=== PATIENT | female | born 1950 | race Caucasian/White ===

== ENCOUNTER 2020-10-18 16:40 | Inpatient (IN) | payer MEDICARE ==
[2020-10-18] MEDS ORDERED: Ondansetron PF 4 MG/2 ML Vial ONE (19:09)
[2020-10-18] MEDS ORDERED: Morphine 4 MG/ML VIAL ONE (19:09)
[2020-10-18 19:40] LABS: #Basophils 0.1 thou/uL (0.0-0.2); #Eosinphils 0.1 thou/uL (0.0-0.7); #Lymphocytes 1.5 thou/uL (1.20-3.40); #Monocytes 0.5 thou/uL (0.11-0.59); #Neutrophils 7.4 thou/uL (1.40-6.50); %Basophils 0.7 % (0.0-1.0); %Lymphocytes 15.5 % (21.0-51.0); %Monocytes 5.1 % (0.0-10.0); %Neutrophils 77.7 % (42.0-75.0); Hemoglobin 14.9 g/dL (12.0-16.0); Mean Corpuscular HGB CONC 32.2 g/dL (32.0-36.0); Mean Corpuscular Hemoglobin 32.1 pg (27.0-31.0); Mean Corpuscular Volume 99.6 fL (78.0-98.0); Mean Platelet Volume 9.6 fL (7.4-10.4); Platelet Count 261 thou/uL (130-400); RBC Distribution Width 12.5 % (11.5-14.5); Red Blood Cell (RBC) Count 4.65 mill/uL (4.20-5.40); White Blood Cell (WBC) Count 9.5 thou/uL (4.8-10.8)
[2020-10-18 20:01] LABS: ALT (SGPT) 45 U/L (8-55); AST (SGOT) 33 U/L (5-34); Albumin 3.9 g/dL (3.4-4.8); Alkaline Phosphatase 134 U/L (40-110); Anion Gap 10 mmol/L (10-20); BUN (Urea Nitrogen) 15 mg/dL (9.8-20.1); Bilirubin, Total 0.4 mg/dL (0.2-1.2); Calc. Creatinine Clearance 0 mL/min (70-130); Calcium 9.4 mg/dL (7.8-10.44); Carbon Dioxide 28 mmol/L (23-31); Chloride 105 mmol/L (98-107); Globulin 3.9 g/dL (2.4-3.5); Glucose 145 mg/dL (80-115); Lipase 28 U/L (8-78); Potassium 4.4 mmol/L (3.5-5.1); Protein, Total 7.8 g/dL (5.8-8.1); Sodium 139 mmol/L (136-145)
[2020-10-18] MEDS ORDERED: Dextrose 5% in Water 1,000 ML IV PRN (22:34)
[2020-10-18] MEDS ORDERED: Dextrose 50% Abboject 50 ML SYRINGE SLOW IVP PRN (22:34)
[2020-10-18] MEDS ORDERED: Senokot S 8.6-50 MG TAB PO PRN (22:34)
[2020-10-18] MEDS ORDERED: Ondansetron PF 4 MG/2 ML Vial IVP PRN (22:34)
[2020-10-18] MEDS ORDERED: HumaLOG 300 UNITS/3 ML VIAL SC PRN ×2 (22:34)
[2020-10-19] MEDS: Sodium Chloride 0.9% 1,000 ML IV SCH ×2 (00:26→11:45)
[2020-10-19] MEDS: Morphine 4 MG/ML VIAL SLOW IVP PRN ×2 (00:48→18:55)
[2020-10-19] MEDS ORDERED: Amiodarone 200 MG TAB PO SCH (01:15)
[2020-10-19] MEDS ORDERED: Diazepam 5 MG TAB PO SCH (01:15)
[2020-10-19 02:16] VITALS: BMI 27.7
[2020-10-19 06:16] LABS: #Basophils 0.1 thou/uL (0.0-0.2); #Eosinphils 0.1 thou/uL (0.0-0.7); #Monocytes 0.9 thou/uL (0.11-0.59); #Neutrophils 8.7 thou/uL (1.40-6.50); %Basophils 0.8 % (0.0-1.0); %Eosinophils 0.7 % (0.0-10.0); %Lymphocytes 17.3 % (21.0-51.0); %Monocytes 7.2 % (0.0-10.0); Hemoglobin 13.6 g/dL (12.0-16.0); Mean Corpuscular HGB CONC 33.2 g/dL (32.0-36.0); Mean Corpuscular Hemoglobin 33.3 pg (27.0-31.0); Mean Platelet Volume 9.6 fL (7.4-10.4); Platelet Count 245 thou/uL (130-400); RBC Distribution Width 12.5 % (11.5-14.5); Red Blood Cell (RBC) Count 4.07 mill/uL (4.20-5.40); White Blood Cell (WBC) Count 11.7 thou/uL (4.8-10.8)
[2020-10-19 06:35] LABS: Anion Gap 10 mmol/L (10-20); BUN (Urea Nitrogen) 11 mg/dL (9.8-20.1); Bilirubin, Total 0.6 mg/dL (0.2-1.2); Calc. Creatinine Clearance 109 mL/min (70-130); Calcium 9.2 mg/dL (7.8-10.44); Carbon Dioxide 25 mmol/L (23-31); Chloride 108 mmol/L (98-107); Glucose 90 mg/dL (80-115); Potassium 3.9 mmol/L (3.5-5.1); Sodium 139 mmol/L (136-145)
[2020-10-19 06:36] LABS: ALT (SGPT) 63 U/L (8-55); AST (SGOT) 57 U/L (5-34); Albumin 3.4 g/dL (3.4-4.8); Alkaline Phosphatase 125 U/L (40-110); Globulin 3.4 g/dL (2.4-3.5); Protein, Total 6.8 g/dL (5.8-8.1)
[2020-10-19] MEDS: Diazepam 5 MG TAB PO SCH ×2 (08:36→20:30)
[2020-10-19] MEDS: Lantus 1000 UNITS/10 ML VIAL SC SCH (08:41)
[2020-10-19] MEDS ORDERED: Iopamidol-370 76% 500 ML 1 ML ONE (09:48)
[2020-10-19] MEDS: Amlodipine 5 MG TAB PO SCH (11:39)
[2020-10-19] MEDS: Potassium Chloride 10 MEQ TAB PO SCH (11:40)
[2020-10-19] MEDS: Lidocaine 5% Patch TD SCH (11:40)
[2020-10-19] MEDS: Amiodarone 200 MG TAB PO SCH ×2 (11:40→20:30)
[2020-10-19] MEDS: Ondansetron ODT 4 MG TAB PO PRN (11:45)
[2020-10-19 19:38] LABS: SARS-CoV-2 PCR by NAA Not Detected (NotDetected)
[2020-10-19] MEDS: Melatonin 3 MG TAB PO PRN (20:30)
[2020-10-19] MEDS: Atorvastatin Calcium 40 MG TAB PO SCH (20:30)
[2020-10-19] MEDS: Transdermal Patch Removal TOP SCH (20:36)
[2020-10-20] MEDS: Sodium Chloride 0.9% 1,000 ML IV SCH ×3 (01:47→21:10)
[2020-10-20 05:50] LABS: #Eosinphils 0.1 thou/uL (0.0-0.7); #Lymphocytes 1.3 thou/uL (1.20-3.40); #Monocytes 0.5 thou/uL (0.11-0.59); #Neutrophils 7.5 thou/uL (1.40-6.50); %Basophils 0.4 % (0.0-1.0); %Eosinophils 1.5 % (0.0-10.0); %Lymphocytes 13.8 % (21.0-51.0); %Monocytes 5.2 % (0.0-10.0); %Neutrophils 79.1 % (42.0-75.0); Hemoglobin 13.5 g/dL (12.0-16.0); Mean Corpuscular HGB CONC 32.2 g/dL (32.0-36.0); Mean Corpuscular Hemoglobin 32.3 pg (27.0-31.0); Mean Platelet Volume 9.7 fL (7.4-10.4); Platelet Count 234 thou/uL (130-400); RBC Distribution Width 12.5 % (11.5-14.5); Red Blood Cell (RBC) Count 4.19 mill/uL (4.20-5.40); White Blood Cell (WBC) Count 9.4 thou/uL (4.8-10.8)
[2020-10-20 06:22] LABS: ALT (SGPT) 93 U/L (8-55); AST (SGOT) 72 U/L (5-34); Albumin 3.6 g/dL (3.4-4.8); Alkaline Phosphatase 156 U/L (40-110); Anion Gap 11 mmol/L (10-20); BUN (Urea Nitrogen) 8 mg/dL (9.8-20.1); Bilirubin, Total 0.9 mg/dL (0.2-1.2); Calc. Creatinine Clearance 92 mL/min (70-130); Calcium 9.2 mg/dL (7.8-10.44); Carbon Dioxide 25 mmol/L (23-31); Chloride 105 mmol/L (98-107); Globulin 3.4 g/dL (2.4-3.5); Glucose 115 mg/dL (80-115); Potassium 4.1 mmol/L (3.5-5.1); Sodium 137 mmol/L (136-145)
[2020-10-20] MEDS: Amlodipine 5 MG TAB PO SCH (08:29)
[2020-10-20] MEDS: Amiodarone 200 MG TAB PO SCH ×2 (08:30→20:22)
[2020-10-20] MEDS: Diazepam 5 MG TAB PO SCH ×2 (08:30→20:21)
[2020-10-20] MEDS: Lidocaine 5% Patch TD SCH ×2 (08:31→08:32)
[2020-10-20] MEDS: Lantus 1000 UNITS/10 ML VIAL SC SCH (08:31)
[2020-10-20] MEDS: Potassium Chloride 10 MEQ TAB PO SCH (08:32)
[2020-10-20] MEDS ORDERED: Iothalamate Meglumine 60% 30 ML VIAL FS ONE (09:28)
[2020-10-20] MEDS ORDERED: Bupivacaine 0.5% 10 ML VIAL ONE (09:28)
[2020-10-20] MEDS ORDERED: Midazolam HCl 2 mg/2 ml Vial ONE (09:29)
[2020-10-20] MEDS ORDERED: Clindamycin/D5W 600 mg/50 ml Premix Bag ONE (09:29)
[2020-10-20] MEDS ORDERED: EPINEPHrine 1 MG/ML AMP ONE (09:32)
[2020-10-20] MEDS ORDERED: Bupivacaine PF 0.5% 30 ML VIAL ONE (09:32)
[2020-10-20] MEDS ORDERED: Fentanyl 250 MCG/5 ML VIAL ONE (09:37)
[2020-10-20] MEDS ORDERED: Ondansetron PF 4 MG/2 ML Vial ONE (09:55)
[2020-10-20] MEDS ORDERED: PHENYLEPHRINE-NS 100 MCG/ML 10 ML SYRINGE ONE (09:55)
[2020-10-20] MEDS ORDERED: Dexamethasone 20 MG/5 ML VIAL ONE (09:55)
[2020-10-20] MEDS ORDERED: ePHEDrine 50 MG/ML VIAL ONE (09:55)
[2020-10-20] MEDS ORDERED: Lidocaine 1% PF 5 ML VIAL ONE (09:55)
[2020-10-20] MEDS ORDERED: PROPOFOL 200 MG/20 ML VIAL ONE (09:55)
[2020-10-20] MEDS ORDERED: Rocuronium Bromide 10 MG/ML (10ML VIAL) ONE (09:55)
[2020-10-20] MEDS ORDERED: Promethazine HCl 25 MG/ML VIAL IVPB PRN (12:03)
[2020-10-20] MEDS ORDERED: Promethazine HCl 25 MG/ML VIAL IM PRN (12:03)
[2020-10-20] MEDS ORDERED: Ondansetron HCl/PF 4 MG/2 ML Vial IVP PRN (12:03)
[2020-10-20] MEDS ORDERED: Fentanyl 100 MCG/2 ML VIAL ONE (12:18)
[2020-10-20] MEDS ORDERED: Ibuprofen 800 MG TAB PO PRN (12:33)
[2020-10-20] MEDS: HYDROcodone/Acetaminophen 5/325 mg Tablet PO PRN (13:23)
[2020-10-20 16:12] LABS: #Basophils 0.1 thou/uL (0.0-0.2); #Lymphocytes 0.6 thou/uL (1.20-3.40); #Monocytes 0.2 thou/uL (0.11-0.59); #Neutrophils 16.9 thou/uL (1.40-6.50); %Basophils 0.3 % (0.0-1.0); %Eosinophils 0.1 % (0.0-10.0); %Lymphocytes 3.2 % (21.0-51.0); %Monocytes 1.2 % (0.0-10.0); %Neutrophils 95.2 % (42.0-75.0); Hemoglobin 13.6 g/dL (12.0-16.0); Mean Corpuscular HGB CONC 34.4 g/dL (32.0-36.0); Mean Corpuscular Hemoglobin 34.2 pg (27.0-31.0); Mean Corpuscular Volume 99.4 fL (78.0-98.0); Mean Platelet Volume 9.1 fL (7.4-10.4); Platelet Count 209 thou/uL (130-400); RBC Distribution Width 12.2 % (11.5-14.5); Red Blood Cell (RBC) Count 3.99 mill/uL (4.20-5.40); White Blood Cell (WBC) Count 17.7 thou/uL (4.8-10.8)
[2020-10-20] MEDS: Atorvastatin Calcium 40 MG TAB PO SCH (20:22)
[2020-10-20] MEDS: Morphine 4 MG/ML VIAL SLOW IVP PRN (20:23)
[2020-10-20] MEDS: Melatonin 3 MG TAB PO PRN (20:30)
[2020-10-20] MEDS: Ondansetron ODT 4 MG TAB PO PRN (20:30)
[2020-10-20] MEDS: Transdermal Patch Removal TOP SCH (21:13)
[2020-10-21] MEDS: Morphine 2 MG/ML VIAL SLOW IVP PRN ×2 (04:24→15:29)
[2020-10-21 06:18] LABS: Anion Gap 10 mmol/L (10-20); BUN (Urea Nitrogen) 9 mg/dL (9.8-20.1); Calc. Creatinine Clearance 102 mL/min (70-130); Calcium 8.9 mg/dL (7.8-10.44); Carbon Dioxide 25 mmol/L (23-31); Chloride 105 mmol/L (98-107); Glucose 127 mg/dL (80-115); Potassium 4.1 mmol/L (3.5-5.1); Sodium 136 mmol/L (136-145)
[2020-10-21] MEDS: Amiodarone 200 MG TAB PO SCH ×2 (08:34→19:51)
[2020-10-21] MEDS: Potassium Chloride 10 MEQ TAB PO SCH (08:34)
[2020-10-21] MEDS: Amlodipine 5 MG TAB PO SCH (08:34)
[2020-10-21] MEDS: Lantus 1000 UNITS/10 ML VIAL SC SCH (08:35)
[2020-10-21] MEDS: Diazepam 5 MG TAB PO SCH ×2 (08:35→20:33)
[2020-10-21] MEDS: Lidocaine 5% Patch TD SCH (08:41)
[2020-10-21 08:51] LABS: #Lymphocytes 1.4 thou/uL (1.20-3.40); #Monocytes 1.4 thou/uL (0.11-0.59); #Neutrophils 13.4 thou/uL (1.40-6.50); %Eosinophils 0.1 % (0.0-10.0); %Lymphocytes 8.5 % (21.0-51.0); %Monocytes 8.4 % (0.0-10.0); Hemoglobin 12.1 g/dL (12.0-16.0); Mean Corpuscular HGB CONC 31.9 g/dL (32.0-36.0); Mean Corpuscular Hemoglobin 31.9 pg (27.0-31.0); Mean Platelet Volume 10.1 fL (7.4-10.4); Platelet Count 227 thou/uL (130-400); RBC Distribution Width 12.4 % (11.5-14.5); Red Blood Cell (RBC) Count 3.78 mill/uL (4.20-5.40); White Blood Cell (WBC) Count 16.2 thou/uL (4.8-10.8)
[2020-10-21] MEDS: Ondansetron ODT 4 MG TAB PO PRN (11:09)
[2020-10-21] MEDS: HYDROcodone/Acetaminophen 5/325 mg Tablet PO PRN (11:13)
[2020-10-21 12:24] LABS: Bacteria/HPF None Seen HPF (None Seen); Bilirubin Negative (Negative); Blood, Urine Negative (Negative); Clarity Clear (Clear); Glucose, Urine (Dipstick) 150 mg/dL (Negative); Ketone, Urine 20 mg/dL (Negative); Leukocyte Negative Leu/uL (Negative); Nitrite Negative (Negative); Protein, Urine (Dipstick) Negative (Neg-Trace); RBC/HPF 0-3 HPF (0-3); Specific Gravity, Urine 1.015 (1.002-1.036); Squamous Epithelial 0-3 HPF (0-3); Urobilinogen Normal mg/dL (Less than 2); pH, Urine 5.5 (5.0-9.0)
[2020-10-21 12:27] LABS: Urine Culture Reflex Yes Yes
[2020-10-21 12:50] LABS: #Lymphocytes 1.6 thou/uL (1.20-3.40); #Monocytes 1.3 thou/uL (0.11-0.59); %Basophils 0.3 % (0.0-1.0); %Eosinophils 0.2 % (0.0-10.0); %Lymphocytes 9.5 % (21.0-51.0); %Monocytes 7.4 % (0.0-10.0); %Neutrophils 82.7 % (42.0-75.0); Hemoglobin 12.2 g/dL (12.0-16.0); Mean Corpuscular Hemoglobin 33.1 pg (27.0-31.0); Mean Platelet Volume 8.9 fL (7.4-10.4); Platelet Count 218 thou/uL (130-400); RBC Distribution Width 12.5 % (11.5-14.5); Red Blood Cell (RBC) Count 3.68 mill/uL (4.20-5.40)
[2020-10-21] MEDS: Sodium Chloride 0.9% 1,000 ML IV SCH (13:15)
[2020-10-21] MEDS: Morphine 4 MG/ML VIAL SLOW IVP PRN (19:47)
[2020-10-21] MEDS: Atorvastatin Calcium 40 MG TAB PO SCH (19:51)
[2020-10-21] MEDS: Transdermal Patch Removal TOP SCH (20:34)
[2020-10-22] MEDS: Morphine 2 MG/ML VIAL SLOW IVP PRN (03:10)
[2020-10-22] MEDS: Sodium Chloride 0.9% 1,000 ML IV SCH (03:12)
[2020-10-22] MEDS: Acetaminophen 500 MG TAB PO PRN (06:01)
[2020-10-22 07:08] LABS: Anion Gap 8 mmol/L (10-20); BUN (Urea Nitrogen) 7 mg/dL (9.8-20.1); Calc. Creatinine Clearance 101 mL/min (70-130); Calcium 8.6 mg/dL (7.8-10.44); Carbon Dioxide 28 mmol/L (23-31); Chloride 104 mmol/L (98-107); Glucose 125 mg/dL (80-115); Potassium 3.9 mmol/L (3.5-5.1); Sodium 136 mmol/L (136-145)
[2020-10-22 08:06] LABS: ALT (SGPT) 164 U/L (8-55); AST (SGOT) 94 U/L (5-34); Alkaline Phosphatase 141 U/L (40-110); Bilirubin, Direct 0.4 mg/dL (0.1-0.3); Bilirubin, Total 0.7 mg/dL (0.2-1.2); Protein, Total 6.3 g/dL (5.8-8.1)
[2020-10-22 08:34] LABS: #Lymphocytes 1.9 thou/uL (1.20-3.40); #Monocytes 1.2 thou/uL (0.11-0.59); %Basophils 0.3 % (0.0-1.0); %Eosinophils 0.3 % (0.0-10.0); %Lymphocytes 12.6 % (21.0-51.0); %Monocytes 7.9 % (0.0-10.0); Hemoglobin 11.6 g/dL (12.0-16.0); Mean Corpuscular HGB CONC 32.1 g/dL (32.0-36.0); Mean Corpuscular Hemoglobin 32.5 pg (27.0-31.0); Mean Platelet Volume 10.2 fL (7.4-10.4); Platelet Count 219 thou/uL (130-400); RBC Distribution Width 12.5 % (11.5-14.5); Red Blood Cell (RBC) Count 3.57 mill/uL (4.20-5.40); White Blood Cell (WBC) Count 15.1 thou/uL (4.8-10.8)
[2020-10-22] MEDS: Amlodipine 5 MG TAB PO SCH (08:47)
[2020-10-22] MEDS: Potassium Chloride 10 MEQ TAB PO SCH (08:47)
[2020-10-22] MEDS: Lantus 1000 UNITS/10 ML VIAL SC SCH (08:47)
[2020-10-22] MEDS: Oxybutynin 5 MG TAB PO SCH (08:47)
[2020-10-22] MEDS: Diazepam 5 MG TAB PO SCH ×2 (08:47→20:37)
[2020-10-22] MEDS: Amiodarone 200 MG TAB PO SCH ×2 (08:48→20:37)
[2020-10-22] MEDS: Lidocaine 5% Patch TD SCH (09:23)
[2020-10-22] MEDS: HYDROcodone/Acetaminophen 5/325 mg Tablet PO PRN (12:51)
[2020-10-22] MEDS: Morphine 4 MG/ML VIAL SLOW IVP PRN (19:38)
[2020-10-22] MEDS: Atorvastatin Calcium 40 MG TAB PO SCH (20:38)
[2020-10-22] MEDS: Transdermal Patch Removal TOP SCH (20:38)
[2020-10-23] MEDS: Acetaminophen 500 MG TAB PO PRN (00:07)
[2020-10-23] MEDS: Morphine 2 MG/ML VIAL SLOW IVP PRN (00:08)
[2020-10-23] MEDS: Melatonin 3 MG TAB PO PRN (00:10)
[2020-10-23] MEDS: Sodium Chloride 0.9% 1,000 ML IV SCH (06:16)
[2020-10-23 08:29] VITALS: BP 127/75; TEMP 98.8
[2020-10-23] MEDS ORDERED: Ciprofloxacin 500 MG TAB PO SCH (09:00)
[2020-10-23] MEDS: Lantus 1000 UNITS/10 ML VIAL SC SCH (09:00)
[2020-10-23] MEDS: Oxybutynin 5 MG TAB PO SCH (09:01)
[2020-10-23] MEDS: Potassium Chloride 10 MEQ TAB PO SCH (09:01)
[2020-10-23] MEDS: Amlodipine 5 MG TAB PO SCH (09:01)
[2020-10-23] MEDS: Diazepam 5 MG TAB PO SCH (09:01)
[2020-10-23] MEDS: Amiodarone 200 MG TAB PO SCH (09:01)
[2020-10-23] MEDS: HYDROcodone/Acetaminophen 5/325 mg Tablet PO PRN (09:02)
[2020-10-23] MEDS: Lidocaine 5% Patch TD SCH (09:15)
[2020-10-23] MEDS: Ondansetron ODT 4 MG TAB PO PRN (12:51)
[2020-10-25] MEDS ORDERED: Ciprofloxacin 500 MG TAB PO SCH (09:00)
== END 2020-10-23 14:36 | disposition home or self-care (01) | DRG 418 ==
LOC: ERS 16:40 → T4-A 22:31
PROVIDERS: ADMIT Student in an Organized Health Care Education/Training Program; ATTEND Internal Medicine
PROC: 0FT44ZZ Resection of Gallbladder, Percutaneous Endoscopic Approach (ICD-10-PCS; principal; 2020-10-20)
PROC: BF131ZZ Fluoroscopy of Gallbladder and Bile Ducts using Low Osmolar Contrast (ICD-10-PCS; 2020-10-20)
DX: K80.64 Calculus of gallbladder and bile duct with chronic cholecystitis without obstruction (principal); N39.0 Urinary tract infection, site not specified; I48.91 Unspecified atrial fibrillation; I10 Essential (primary) hypertension; E78.00 Pure hypercholesterolemia, unspecified; K83.8 Other specified diseases of biliary tract; F41.9 Anxiety disorder, unspecified; K66.0 Peritoneal adhesions (postprocedural) (postinfection); D49.59 Neoplasm of unspecified behavior of other genitourinary organ; R74.01 Elevation of levels of liver transaminase levels; E11.9 Type 2 diabetes mellitus without complications; Z20.822 Contact with and (suspected) exposure to COVID-19; N39.490 Overflow incontinence; Z86.73 Personal history of transient ischemic attack (TIA), and cerebral infarction without residual deficits; Z88.0 Allergy status to penicillin; Z80.0 Family history of malignant neoplasm of digestive organs; Z86.718 Personal history of other venous thrombosis and embolism
CPT/HCPCS: 36415; 36416; 47532; 74177; 76705; 80048; 80053; 80076; 81001; 82378; 83690; 85025; 86300; 86304; 87040; 87086; 88304; 96374; 96375; J0171; J0744; J1100; J2250; J2270; J2405; J2704; J3010; J3490; Q0162; Q9967; S0020; U0003; U0005

== ENCOUNTER 2020-12-10 06:05 | Emergency (ER) | payer MEDICARE ==
[2020-12-10] MEDS ORDERED: Lidocaine 1% w/Epinephrine 1:100K 20 ML VIAL ONE (06:31)
[2020-12-10] MEDS ORDERED: Boostrix 0.5 ML (Tdap) VIAL ONE (07:30)
[2020-12-10] MEDS ORDERED: Lorazepam 2 MG/ML VIAL ONE (07:30)
[2020-12-10 07:54] LABS: Hemoglobin 14.5 g/dL (12.0-16.0); Mean Corpuscular HGB CONC 30.5 g/dL (32.0-36.0); Mean Corpuscular Hemoglobin 30.7 pg (27.0-31.0); Mean Platelet Volume 9.9 fL (7.4-10.4); Platelet Count 369 thou/uL (130-400); RBC Distribution Width 12.8 % (11.5-14.5); Red Blood Cell (RBC) Count 4.74 mill/uL (4.20-5.40); White Blood Cell (WBC) Count 28.3 thou/uL (4.8-10.8)
[2020-12-10 08:11] LABS: Band 7 % (5-11); Lymphocytes 6 % (21-51); MDiff Complete? YES; Monocytes 1 % (0-10); Neutrophil 86 % (42-75); Platelet Morphology Comment Appears Adequate; Polychromasia SLIGHT = 2-3 cells (100X) (0-2/hpf)
[2020-12-10 08:12] LABS: Acetaminophen Less than 6.0 mcg/mL (10.0-30.0); Alcohol Less than 10 mg/dL (Less than 10); Salicylate Less than 8.0 mg/dL (15.0-30.0)
[2020-12-10 08:15] LABS: ALT (SGPT) 40 U/L (8-55); AST (SGOT) 33 U/L (5-34); Albumin 3.8 g/dL (3.4-4.8); Alkaline Phosphatase 114 U/L (40-110); Anion Gap 17 mmol/L (10-20); BUN (Urea Nitrogen) 22 mg/dL (9.8-20.1); Bilirubin, Total 0.6 mg/dL (0.2-1.2); Calc. Creatinine Clearance 0 mL/min (70-130); Calcium 9.8 mg/dL (7.8-10.44); Carbon Dioxide 20 mmol/L (23-31); Chloride 108 mmol/L (98-107); Globulin 3.5 g/dL (2.4-3.5); Glucose 178 mg/dL (80-115); Potassium 3.3 mmol/L (3.5-5.1); Protein, Total 7.3 g/dL (5.8-8.1); Sodium 142 mmol/L (136-145)
[2020-12-10 08:23] LABS: INR-International Normal Ratio 1.1; PTT 25.1 sec (22.9-36.1); Prothrombin Time 14.2 sec (12.0-14.7)
[2020-12-10 09:08] LABS: Bacteria/HPF None Seen HPF (None Seen); Bilirubin Negative (Negative); Blood, Urine Negative (Negative); Clarity Clear (Clear); Glucose, Urine (Dipstick) 300 mg/dL (Negative); Ketone, Urine 100 mg/dL (Negative); Leukocyte 75 Leu/uL (Negative); Nitrite Negative (Negative); Protein, Urine (Dipstick) 30 mg/dL (Neg-Trace); Urobilinogen Normal mg/dL (Less than 2); pH, Urine 5.5 (5.0-9.0)
[2020-12-10] MEDS ORDERED: ceFAZolin 2 GM/DEX 5% 100 ML BAG ONE (09:08)
[2020-12-10 09:10] LABS: Specific Gravity, Urine Greater than 1.060 (1.002-1.036)
[2020-12-10 09:13] LABS: Amphetamine Not Detected (NotDetected); Barbiturates Screen Not Detected (NotDetected); Benzodiazepine Screen Detected (NotDetected); Cocaine Metabolite Screen Not Detected (NotDetected); Methadone Not Detected (NotDetected); Methamphetamine Not Detected (NotDetected); Opiate Screen Not Detected (NotDetected); Oxycodone Screen Not Detected (NotDetected); Phencyclidine (PCP) Not Detected (NotDetected); THC/Cannabinoid Screen Not Detected (NotDetected); Tricyclic Screen Not Detected (NotDetected)
[2020-12-10] MEDS ORDERED: ceFAZolin 1 GM/D5W 1 GM in Premix Bag 1 BAG IVPB SCH (09:45)
[2020-12-10 10:53] LABS: SARS-CoV-2 NAA Rapid Test Not Detected (NotDetected)
[2020-12-10 11:16] LABS: ALT (SGPT) 39 U/L (8-55); AST (SGOT) 32 U/L (5-34); Albumin 3.5 g/dL (3.4-4.8); Alkaline Phosphatase 99 U/L (40-110); Anion Gap 16 mmol/L (10-20); BUN (Urea Nitrogen) 19 mg/dL (9.8-20.1); Bilirubin, Total 0.4 mg/dL (0.2-1.2); Calc. Creatinine Clearance 0 mL/min (70-130); Calcium 9.1 mg/dL (7.8-10.44); Carbon Dioxide 20 mmol/L (23-31); Chloride 109 mmol/L (98-107); Glucose 149 mg/dL (80-115); Potassium 3.9 mmol/L (3.5-5.1); Protein, Total 6.5 g/dL (5.8-8.1); Sodium 141 mmol/L (136-145)
[2020-12-10 11:24] LABS: #Basophils 0.1 thou/uL (0.0-0.2); #Lymphocytes 1.7 thou/uL (1.20-3.40); #Neutrophils 23.9 thou/uL (1.40-6.50); %Basophils 0.2 % (0.0-1.0); %Eosinophils 0.1 % (0.0-10.0); %Lymphocytes 6.5 % (21.0-51.0); %Monocytes 3.7 % (0.0-10.0); %Neutrophils 89.5 % (42.0-75.0); Hemoglobin 12.4 g/dL (12.0-16.0); Mean Corpuscular HGB CONC 31.2 g/dL (32.0-36.0); Mean Corpuscular Volume 99.6 fL (78.0-98.0); Mean Platelet Volume 9.6 fL (7.4-10.4); Platelet Count 291 thou/uL (130-400); RBC Distribution Width 12.7 % (11.5-14.5); Red Blood Cell (RBC) Count 4.01 mill/uL (4.20-5.40); White Blood Cell (WBC) Count 26.7 thou/uL (4.8-10.8)
[2020-12-10] MEDS ORDERED: Diazepam 5 MG TAB ONE (16:13)
[2020-12-11] MEDS ORDERED: Melatonin 3 MG TAB PO SCH ×2 (01:00→09:00)
[2020-12-11] MEDS ORDERED: Diazepam 5 MG TAB ONE (08:42)
[2020-12-11] MEDS ORDERED: Amlodipine 5 MG TAB ONE (08:42)
[2020-12-11 08:55] LABS: #Basophils 0.1 thou/uL (0.0-0.2); #Lymphocytes 1.5 thou/uL (1.20-3.40); #Monocytes 0.6 thou/uL (0.11-0.59); %Basophils 0.5 % (0.0-1.0); %Eosinophils 0.2 % (0.0-10.0); %Lymphocytes 12.4 % (21.0-51.0); %Monocytes 4.7 % (0.0-10.0); %Neutrophils 82.1 % (42.0-75.0); Hemoglobin 12.3 g/dL (12.0-16.0); Mean Corpuscular HGB CONC 31.7 g/dL (32.0-36.0); Mean Corpuscular Hemoglobin 31.7 pg (27.0-31.0); Mean Platelet Volume 9.6 fL (7.4-10.4); Platelet Count 263 thou/uL (130-400); RBC Distribution Width 12.8 % (11.5-14.5); Red Blood Cell (RBC) Count 3.87 mill/uL (4.20-5.40); White Blood Cell (WBC) Count 12.1 thou/uL (4.8-10.8)
[2020-12-11] MEDS ORDERED: Amlodipine 5 MG TAB PO SCH (09:00)
[2020-12-11] MEDS ORDERED: Diazepam 10 MG/2 ML SYRINGE IVP SCH (09:00)
[2020-12-11] MEDS ORDERED: Amiodarone 200 MG TAB PO SCH (09:00)
[2020-12-11] MEDS ORDERED: Lorazepam 2 MG/ML VIAL SLOW IVP SCH (09:00)
[2020-12-11] MEDS ORDERED: Lidocaine 1% w/Epinephrine 1:100K 20 ML VIAL IJ SCH (09:00)
[2020-12-11] MEDS ORDERED: Lantus 1000 UNITS/10 ML VIAL SC SCH (09:00)
[2020-12-11] MEDS ORDERED: ceFAZolin 1 GM/D5W 1 GM in Premix Bag 1 BAG IVPB SCH (09:00)
[2020-12-11] MEDS ORDERED: Diazepam 5 MG TAB PO SCH (09:00)
[2020-12-11] MEDS ORDERED: Boostrix 0.5 ML (Tdap) VIAL IM ONE (09:00)
== END 2020-12-11 11:02 ==
LOC: ERS 06:05
DX: S51.812A Laceration without foreign body of left forearm, initial encounter (principal); S80.811A Abrasion, right lower leg, initial encounter; S80.812A Abrasion, left lower leg, initial encounter; X78.8XXA Intentional self-harm by other sharp object, initial encounter; I10 Essential (primary) hypertension; E78.5 Hyperlipidemia, unspecified; E11.9 Type 2 diabetes mellitus without complications; I48.91 Unspecified atrial fibrillation; E87.6 Hypokalemia; Z86.718 Personal history of other venous thrombosis and embolism; Z23 Encounter for immunization; Z20.822 Contact with and (suspected) exposure to COVID-19; Z86.73 Personal history of transient ischemic attack (TIA), and cerebral infarction without residual deficits; Z79.01 Long term (current) use of anticoagulants; Z79.4 Long term (current) use of insulin; Z79.899 Other long term (current) drug therapy
CPT/HCPCS: 73206; 80053 ×2; 80306; 80307; 82962; 85025 ×2; 85610; 85730; 86850; 86900; 86901; 87086; 90715; U0002; 12006; 36415; 36416; 81003; 81015; 90471; 96374; 96375; J0690; J1815; J2060